=== PATIENT | female | born 1980 | race Caucasian/White ===

== ENCOUNTER 2017-03-25 16:48 | Emergency (ER) | payer OTHER ==
[~2017-03-25] VITALS: Ht 160 cm; Wt 89.4 kg
[2017-03-25 17:04] VITALS: BP 146/99
[2017-03-25] MEDS ORDERED: ALEVE220 M2 PO (17:08)
--- NOTE | 2017-03-25 17:34 | NUR ---
PT BACK FROM XRAY.
--- NOTE | 2017-03-25 17:36 | NUR ---
Patient being evaluated by physician's fleet administrative assistant and MEAT GRADING MACHINE OPERATOR at bedside.
--- NOTE | 2017-03-25 18:02 | NUR ---
PATIENT IS A 36 YO FEMALE CO LEFT ANKLE PAIN. AWAKE AND ALERT, SLIGHT SWELLING AT SITE.
[2017-03-25 18:43] VITALS: BP 146/99
--- NOTE | 2017-03-25 18:45 | NUR ---
Patient discharged with v/s stable. Written and verbal after care instructions given and explained. Patient alert, oriented and verbalized understanding of instructions. Carried with . All questions addressed prior to discharge. ID band removed. Patient advised to follow up with PMD. Rx of NORCO given. Patient educated on indication of medication including possible reaction and side effects. Opportunity to ask questions provided and answered.
== END 2017-03-25 18:45 | disposition home or self-care (01) ==
LOC: MED 16:48
DX: S93.492A Sprain of other ligament of left ankle, initial encounter (principal); X58.XXXA Exposure to other specified factors, initial encounter; Y93.02 Activity, running; Y92.89 Other specified places as the place of occurrence of the external cause; Y99.8 Other external cause status